=== PATIENT | female | born 1955 | race African-American/Black ===

== ENCOUNTER 2016-05-16 08:31 | Inpatient (IN) | payer MEDICARE, OTHER ==
[~2016-05-16] VITALS: Ht 162.6 cm; Wt 114.1 kg
[~2016-05-16 08:31] MED LIST: 0.9% SODIUM CHLORIDE 10 ML VIAL IVP ONE; BACITRACIN 50,000 UNITS/VIAL ONE; BUPIVACAINE HCL/PF 0.5% 30 ML VIAL ONE; EPHEDrine SULFATE 50 MG/ML VIAL IM ONE; FentaNYL CITRATE-PF 100 MCG/2 ML VIAL IVP ONE; GABA-531 PO; LOSA25TA21 PO; MIDAZOLAM HCL 2 MG/2 ML VIAL IVP ONE; PERCT10 PO; PHENYLEPHRINE HCL 10 MG/ML VIAL IVP ONE; PROPOFOL 1% 20 ML VIAL IVP ONE; RINGERS SOLUTION,LACTATED 1,000 ML IV ONE; SODIUM CL IRRIG SOLN BAG 3,000 ML IRRIG ONE
[2016-05-16] MEDS ORDERED: TRANEXAMIC ACID 1,000 MG in DEXTROSE 5%-WATER 50 ML IV ONE (08:45)
[2016-05-16] MEDS ORDERED: CELECOXIB 200 MG CAPSULE PO ONE (08:45)
[2016-05-16] MEDS ORDERED: HYDROmorphone 2 MG/ML SYRINGE IVP PRN ×2 (08:45)
[2016-05-16] MEDS ORDERED: PROMETHAZINE HCL 25 MG/ML VIAL IM PRN (08:45)
[2016-05-16] MEDS ORDERED: FentaNYL CITRATE-PF 100 MCG/2 ML VIAL IVP PRN (08:45)
[2016-05-16] MEDS ORDERED: ONDANSETRON HCL 4 MG/2 ML VIAL IVP PRN ×2 (08:45→09:15)
[2016-05-16] MEDS ORDERED: BUPIVACAINE LIPOSOME/PF 1.3%-13.3MG/ML SUSPENSION 20 ML VIAL INJ ONE (08:45)
[2016-05-16] MEDS ORDERED: MEPERIDINE-PF 25 MG/ML SYRINGE IVP PRN (08:45)
[2016-05-16] MEDS ORDERED: ZOLPIDEM TARTRATE 5 MG TABLET PO PRN (08:45)
[2016-05-16] MEDS ORDERED: ACETAMINOPHEN 1000 MG/ISO-OSM 100 ML IV ONE (08:59)
[2016-05-16] MEDS ORDERED: CELECOXIB 200 MG CAPSULE ONE (08:59)
[2016-05-16] MEDS: ACETAMINOPHEN 1000 MG/ISO-OSM 100 ML IV SCH ×3 (09:06→20:44)
[2016-05-16] MEDS ORDERED: SODIUM CHLORIDE 0.9% 1,000 ML IV SCH (09:11)
[2016-05-16] MEDS ORDERED: BENZOCAINE/MENTHOL LOZENGE [8 LOZENGES/PACKET] PO PRN (09:15)
[2016-05-16] MEDS ORDERED: DiphenhydrAMINE HCL 50 MG/ML VIAL IVP PRN (09:15)
[2016-05-16] MEDS ORDERED: BISACODYL 10 MG RECTAL RECTAL SUPPOSITORY PR PRN (09:15)
[2016-05-16] MEDS ORDERED: SODIUM CHLORIDE 0.9% 100 ML ONE (09:47)
[2016-05-16 12:30] VITALS: BP 102/62
[2016-05-16 16:00] VITALS: BP 118/67
[2016-05-16] MEDS: HYDROmorphone 2 MG/ML SYRINGE IVP PRN ×3 (16:16→21:20)
[2016-05-16] MEDS: CeFAZolin 1 GM/DEXTROSE 50 ML IV SCH (17:46)
[2016-05-16 19:31] VITALS: BP 129/69
[2016-05-16] MEDS: OXYGEN THERAPY IH SCH ×2 (20:00)
[2016-05-16] MEDS: CELECOXIB 200 MG CAPSULE PO SCH (20:42)
[2016-05-16] MEDS: DOCUSATE SODIUM 100 MG CAPSULE PO SCH (20:42)
[2016-05-16] MEDS: CYCLOBENZAPRINE HCL 10 MG TABLET PO PRN (20:43)
[2016-05-17] VITALS (7 sets, daily range): BP systolic 118–151; BP diastolic 67–84
[2016-05-17] MEDS: HYDROmorphone 2 MG/ML SYRINGE IVP PRN ×7 (00:15→23:43)
[2016-05-17] MEDS: CeFAZolin 1 GM/DEXTROSE 50 ML IV SCH (01:54)
[2016-05-17] MEDS: ACETAMINOPHEN 1000 MG/ISO-OSM 100 ML IV SCH (02:29)
[2016-05-17 06:05] LABS: BASOPHILS % (AUTO) 0.4 % (0.0-2.0); EOSINOPHILS % (AUTO) 2.4 % (1.0-6.0); HEMATOCRIT 32.3 % (36-46); HEMOGLOBIN 10.5 g/dL (12.0-16.0); LYMPHOCYTES # (AUTO) 1.3 K/uL (1.0-4.8); LYMPHOCYTES % (AUTO) 16.4 % (22.0-44.0); MEAN CORPUSCULAR HGB CONC 32.5 G/dL (31.0-37.0); MEAN CORPUSCULAR VOLUME 95 fL (80-100); MONOCYTES # (AUTO) 0.8 K/uL (0.1-1.0); MONOCYTES % (AUTO) 9.8 % (2.0-9.0); NEUTROPHILS # (AUTO) 5.8 K/uL (1.8-7.7); PLATELET COUNT (AUTO) 221 K/uL (150-450); RED BLOOD CELL COUNT(AUTO) 3.38 MIL/uL (4.00-5.20); RED CELL DISTRIBUTION WIDTH 13.3 % (11.5-14.5); WHITE BLOOD COUNT (AUTO) 8.1 K/uL (4.5-11.0)
[2016-05-17 07:27] LABS: ANION GAP 6 mmol/L (8-16); CALCIUM, TOTAL 8.1 mg/dL (8.8-10.5); CARBON DIOXIDE 29 mmol/L (22-29); CHLORIDE 103 mmol/L (98-107); CREATININE 0.59 mg/dL (0.60-1.30); GLOMERULAR FILTR. RATE CALC > 60 mL/min (>60); SODIUM SERUM 138 mmol/L (136-145); UREA NITROGEN, BLOOD 8 mg/dL (7-18)
[2016-05-17] MEDS: OXYGEN THERAPY IH SCH ×4 (08:00→20:00)
[2016-05-17] MEDS: CELECOXIB 200 MG CAPSULE PO SCH ×2 (08:00→20:04)
[2016-05-17] MEDS: GABAPENTIN 300 MG CAPSULE PO SCH (08:00)
[2016-05-17] MEDS: DOCUSATE SODIUM 100 MG CAPSULE PO SCH ×2 (08:00→20:04)
[2016-05-17] MEDS: CYCLOBENZAPRINE HCL 10 MG TABLET PO PRN (08:00)
[2016-05-17] MEDS: LOSARTAN POTASSIUM 25 MG TABLET PO SCH (08:04)
[2016-05-17] MEDS: RIVAROXABAN 10 MG TABLET PO SCH ×2 (11:00→17:56)
[2016-05-17] MEDS: OxyCODONE HCL/ACETAMINOPHEN 10-325 MG TABLET PO PRN ×3 (15:07→21:35)
[2016-05-18] MEDS: OxyCODONE HCL/ACETAMINOPHEN 10-325 MG TABLET PO PRN ×4 (01:09→13:49)
[2016-05-18 03:30] VITALS: BP 123/68
[2016-05-18 06:05] LABS: BASOPHILS % (AUTO) 0.1 % (0.0-2.0); HEMATOCRIT 31.1 % (36-46); HEMOGLOBIN 10.1 g/dL (12.0-16.0); LYMPHOCYTES # (AUTO) 1.9 K/uL (1.0-4.8); LYMPHOCYTES % (AUTO) 21.9 % (22.0-44.0); MEAN CORPUSCULAR HEMOGLOBIN 30.9 pg (26.0-34.0); MEAN CORPUSCULAR HGB CONC 32.5 G/dL (31.0-37.0); MEAN CORPUSCULAR VOLUME 95 fL (80-100); MONOCYTES # (AUTO) 0.9 K/uL (0.1-1.0); MONOCYTES % (AUTO) 10.1 % (2.0-9.0); NEUTROPHILS # (AUTO) 5.6 K/uL (1.8-7.7); NEUTROPHILS % (AUTO) 64.9 % (40.0-70.0); PLATELET COUNT (AUTO) 205 K/uL (150-450); RED BLOOD CELL COUNT(AUTO) 3.27 MIL/uL (4.00-5.20); RED CELL DISTRIBUTION WIDTH 13.3 % (11.5-14.5); WHITE BLOOD COUNT (AUTO) 8.7 K/uL (4.5-11.0)
[2016-05-18 07:28] VITALS: BP 150/78
[2016-05-18] MEDS: DOCUSATE SODIUM 100 MG CAPSULE PO SCH (07:42)
[2016-05-18] MEDS: CYCLOBENZAPRINE HCL 10 MG TABLET PO PRN (07:42)
[2016-05-18] MEDS: LOSARTAN POTASSIUM 25 MG TABLET PO SCH (07:42)
[2016-05-18] MEDS: CELECOXIB 200 MG CAPSULE PO SCH (07:42)
[2016-05-18] MEDS: GABAPENTIN 300 MG CAPSULE PO SCH (07:42)
[2016-05-18] MEDS: OXYGEN THERAPY IH SCH ×2 (08:00)
[2016-05-18] MEDS ORDERED: PERCT PO (08:53)
[2016-05-18] MEDS ORDERED: RIVA10 PO (08:53)
[2016-05-18] MEDS: HYDROmorphone 2 MG/ML SYRINGE IVP PRN (09:05)
[2016-05-18 11:54] VITALS: BP 122/69
== END 2016-05-18 15:14 | disposition home health service (06) | DRG 470 ==
LOC: 4E 08:31
PROVIDERS: ADMIT Orthopaedic Surgery; ATTEND Orthopaedic Surgery
PROC: 0SRC0J9 Replacement of Right Knee Joint with Synthetic Substitute, Cemented, Open Approach (ICD-10-PCS; principal; 2016-05-16 10:00)
DX: M17.11 Unilateral primary osteoarthritis, right knee (principal); E44.0 Moderate protein-calorie malnutrition; Z68.41 Body mass index [BMI] 40.0-44.9, adult; I10 Essential (primary) hypertension; Z96.652 Presence of left artificial knee joint; E66.01 Morbid (severe) obesity due to excess calories; J44.9 Chronic obstructive pulmonary disease, unspecified; Z79.899 Other long term (current) drug therapy; Z79.891 Long term (current) use of opiate analgesic; Z98.84 Bariatric surgery status; Z90.710 Acquired absence of both cervix and uterus
CPT/HCPCS: 87081; 88300; 97110; 97116; 97162; 97166; 97530; 97535; C9290; G0238; J0131; J0690; J1170; J2250; J2370; J2704; J3010; J3490; J7030; J7050; J7060; J7120